=== PATIENT | female | born 2000 | race African-American/Black ===

== ENCOUNTER 2022-09-01 10:52 | Emergency (ER) | payer SELFPAY ==
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
[2022-09-01 11:04] VITALS: BP 116/79; PULSE 90; RESP 20; TEMP 36.5; O2SAT 100
== END 2022-09-01 11:21 | disposition home or self-care (01) ==
PROVIDERS: Emergency Provider Nurse Practitioner Family
DX: L08.9 Local infection of the skin and subcutaneous tissue, unspecified (principal)
CPT/HCPCS: 99213; G0463